=== PATIENT | male | born 1985 | race Caucasian/White ===

== ENCOUNTER 2020-01-13 16:04 | Emergency (ER) | payer OTHER ==
[2020-01-13] MEDS ORDERED: fentaNYL 100 MCG/2 ML SDV IVPUSH ONE (17:00)
--- NOTE | 2020-01-13 17:00 | PCM.HP.2 ---
H&P History of Present Illness - General Date of Service: 01/13/20 Admit Problem/Dx: laceration to left thigh Source of Information: Patient, Provider History Limitations: Reports: No Limitations - History of Present Illness Initial Comments - Free Text/Narative: The patient is a 34 y/o gentleman who sustained an injury while at work. He fell onto a bolt that lacerated the posterior superior left thigh. He was seen a an outside clinic where he was given a tetanus injection and had the wound washed out. He presented to the ED for laceration repair. He denies any dizziness or lightheadedness that caused the fall. Left Upper Leg Pain Score (Numeric/FACES): 2 - Related Data Allergies/Adverse Reactions: Allergies Allergy/AdvReac Type Severity Reaction Status Date / Time No Known Allergies Allergy Verified 01/13/20 16:26 Past Medical History Cardiovascular History: Reports: Hypertension - Past Surgical History Musculoskeletal Surgical History: Reports: Other (See Below) Other Musculoskeletal Surgeries/Procedures:: tore ACL Social & Family History - Family History Oncologic: Reports: Bladder - Tobacco Use Years of Tobacco use: 10 Packs/Tins Daily: 0.1 - Caffeine Use Caffeine Use: Reports: Coffee - Recreational Drug Use Recreational Drug Use: No H&P Review of Systems - Review of Systems: Review Of Systems: See Below General: Reports: No Symptoms HEENT: Reports: No Symptoms Pulmonary: Reports: No Symptoms Cardiovascular: Reports: No Symptoms Gastrointestinal: Reports: No Symptoms Genitourinary: Reports: No Symptoms Musculoskeletal: Reports: No Symptoms Skin: Reports: No Symptoms Neurological: Reports: No Symptoms Hematologic/Lymphatic: Reports: No Symptoms Exam - Exam Exam: See Below - Vital Signs Vital Signs: Last Vital Signs Temp 37.2 C 01/13/20 16:22 Pulse 78 01/13/20 16:22 Resp 16 01/13/20 16:22 BP 126/89 01/13/20 16:22 Pulse Ox 99 01/13/20 16:22 Weight: 88.451 kg - Exam Quality Assessment: No: Supplemental Oxygen General: Alert, Oriented Neck: Supple Lungs: Normal Respiratory Effort Cardiovascular: Regular Rate, Regular Rhythm Skin: Warm, Dry, Other (23cm laceration involving the subcutaneous fat in the posterior superior left thigh) Neurological: Cranial Nerves Intact Neuro Extensive - Mental Status: Oriented x3, Normal Mood/Affect Sepsis Event Note - Evaluation Sepsis Screening Result: No Definite Risk - Focused Exam Vital Signs: Vital Signs Temp Pulse Resp BP Pulse Ox 01/13/20 16:22 37.2 C 78 16 126/89 99 *Q Meaningful Use (ADM) - VTE Risk Assess *Q Each Risk Factor Represents 1 Point: Obesity ( BMI > 25 kg/m2) Total Score 1 Point Risk Factors: 1 - Problem List (1) Laceration of left thigh SNOMED Code(s): 398953537, [id number], [id number] ICD Code: S71.112A - LACERATION WITHOUT FOREIGN BODY, LEFT THIGH, INIT ENCNTR Status: Acute Current Visit: Yes Problem List Initiated/Reviewed/Updated: Yes Assessment/Plan Comment:: 34 y/o gentleman who presents with deep laceration to the posterior superior left thigh - pt already received tetanus booster - irrigate wound and repair with layered closure - IV fentanyl 50mcg x1 May discharge home. Pt to follow up in 2 weeks for suture removal. Given written wound instructions. Shira Delgado MD General surgery - Mortality Measure Prognosis:: Good
[2020-01-13] MEDS ORDERED: fentaNYL 100 MCG/2 ML SDV ONE (17:06)
--- NOTE | 2020-01-13 18:35 | PCM.PRNOTE ---
- Free Text/Narrative Note: Procedure report Date of Procedure: January 13, 2020 Pre-procedure diagnosis: Laceration to the left thigh Post-procedure diagnosis: same Procedure: Repair of laceration to left thigh Surgeon: Dr. Shira Delgado Anesthesia: Local with 1% lidocaine with epinephrine Shop Mechanic: N/A Estimated blood loss: 10 mL Findings: Deep laceration to the posterior superior left thigh through the subcutaneous fat down to the level of the underlying muscle Pathology: None Indication for the procedure: The patient is a 34-year-old gentleman who presented to the emergency department with a deep laceration to the posterior superior left thigh. This required repair. He was consented for a laceration repair. His written consent was obtained Description of the procedure: The patient was placed in prone position on the ED cart. The wound was then irrigated with a mixed solution of saline and iodine. The wound was then inspected. There was no apparent involvement of the underlying muscle but the laceration did extend through the subcutaneous fat. The wound was then reapproximated and repaired using a layered closure. The deeper layers and dermal tissue were reapproximated using interrupted 4-0 Vicryl suture and 3-0 Vicryl suture. The skin was then closed using interrupted 3-0 nylon vertical mattress sutures. The wound was curvilinear and measured approximately 23 cm. A dressing was then applied using Vaseline gauze over the suture line and covered with a dry dressing and kerlix wrap. The patient tolerated the procedure very well. There were no immediate complications. Shira Delgado MD General surgery
== END 2020-01-13 18:26 | disposition home or self-care (01) ==
LOC: JD.ED 16:04
DX: Z53.21 Procedure and treatment not carried out due to patient leaving prior to being seen by health care provider (principal)
CPT/HCPCS: J3010